=== PATIENT | male | born 1970 | race Caucasian/White ===

== ENCOUNTER → 2023-03-16 14:35 | Outpatient (CLI) | payer MEDICAID, SELFPAY ==
--- NOTE | 2023-03-16 14:39 | CT_ITS ---
FINAL REPORT CLINICAL HISTORY: TOBACCO USE, smokes 1 pk per day x 30 yrs FINDINGS: CTDI vol (mGy): 2.90 DLP: 121.[address] images of the chest were obtained using the low-dose protocol for screening. There is no evidence of mediastinal or hilar mass or adenopathy. No axillary mass or adenopathy is identified. On the lung window images, there are mild changes of centrilobular emphysema. A 4 mm nodule is seen in the periphery of the left lower lobe on image 48 of series 4. IMPRESSION: Lung RADS category 2. Recommend 12 month followup low-dose CT for further evaluation. Reviewed, Interpreted and Dictated by Rishabh Marks MD Transcribed by Kena Valdez Authenticated and [facility]
--- NOTE | 2023-03-16 14:47 | XR_ITS ---
FINAL REPORT CLINICAL HISTORY: RIGHT KNEE PAIN, NKT. Pain radiates down leg x yrs, worsened x last few mos. FINDINGS: There is no acute fracture or dislocation of the right knee. The joint spaces are intact. There is no soft tissue abnormality. IMPRESSION: No acute fracture Reviewed, Interpreted and Dictated by iRshabh Marks MD Transcribed by Ember Abdalla Authenticated and . [facility]
== END ==
PROVIDERS: PCP Physician Assistant; Visit Provider Physician Assistant
DX: Z87.891 Personal history of nicotine dependence (principal); Z12.2 Encounter for screening for malignant neoplasm of respiratory organs; M25.561 Pain in right knee
CPT/HCPCS: 71271; 73562

== ENCOUNTER 2023-04-09 10:52 | Outpatient (RCR) | payer MEDICAID, SELFPAY | END 2023-04-09 10:55 | disposition home or self-care (01) | LOC: PT 10:52 | PROVIDERS: PCP Physician Assistant; Visit Provider Physician Assistant | DX: M54.50 Low back pain, unspecified (principal); M25.561 Pain in right knee | CPT/HCPCS: 97163 ==

== ENCOUNTER → 2023-04-09 11:30 | Outpatient (CLI) | payer MEDICAID, SELFPAY ==
--- NOTE | 2023-04-09 11:41 | XR_ITS ---
FINAL REPORT CLINICAL HISTORY: LOW BACK PAIN COMPARISON: None FINDINGS: SINGLE VIEW PELVIS: A single view of the pelvis was obtained. There is no acute fracture or dislocation. Vizualized joint spaces are normally aligned. Soft tissues are unremarkable. IMPRESSION: No acute bony abnormality. Reviewed, Interpreted and Dictated by Mic Laguna III, MD Transcribed by Sarah Nance Authenticated and [facility]
--- NOTE | 2023-04-09 11:42 | XR_ITS ---
FINAL REPORT CLINICAL HISTORY: LOW BACK PAIN COMPARISON: None FINDINGS: 5 views of the lumbar spine were obtained. There is no evidence of fracture or dislocation. The vertebral alignment is normal. There is degenerative change with osteophytes. No paraspinous soft tissue abnormalities identified. IMPRESSION: No acute bony abnormality. Reviewed, Interpreted and Dictated by Mic Laguna III, MD Transcribed by Sarah Nance Authenticated and [facility]
== END ==
PROVIDERS: PCP Internal Medicine Adolescent Medicine; Visit Provider Physician Assistant
DX: M54.50 Low back pain, unspecified (principal)
CPT/HCPCS: 72110; 72170

== ENCOUNTER 2023-10-13 21:42 | Emergency (ER) | payer MEDICAID, SELFPAY ==
[2023-10-13 21:43] VITALS: BP 132/94; PULSE 86; RESP 18; TEMP 36.7; O2SAT 97; BMI 21.2
--- NOTE | 2023-10-13 22:16 | XR_ITS ---
PROCEDURE INFORMATION: Exam: XR Chest Exam date and time: 10/13/2023 10:14 PM Age: 52 years old Clinical indication: Cough; Additional info: Pulmonary nodule, cough, copd TECHNIQUE: Imaging protocol: Radiologic exam of the chest. Views: 2 views. COMPARISON: CT LUNG SCREENING 03/16/2023 2:41 PM FINDINGS: Lungs: Unremarkable. No consolidation. Pleural spaces: Unremarkable. No pleural effusion. No pneumothorax. Heart/Mediastinum: Unremarkable. No cardiomegaly. Bones/joints: Unremarkable. IMPRESSION: No acute pulmonary findings.
--- NOTE | 2023-10-13 22:22 | ECG_ITS ---
APPROVED REPORT Exam: Resting ECG HR:78 bpm ECG Measurements Heart Rate 78 AXES FL 193 P 63 QRSd 110 QRS 79 QT 372 T 63 QTc 405 Conclusion SINUS RHYTHM WITH OCCASIONAL SUPRAVENTRICULAR PREMATURE COMPLEXES POSSIBLE RIGHT VENTRICULAR CONDUCTION DELAY [RSR (QR) IN V1/V2] BORDERLINE ECG UNCONFIRMED REPORT Electronically signed by : Matty Saab MD 10/14/2023 08:36:13
--- NOTE | 2023-10-13 22:27 | HMH.EDGENADL ---
Discharge Plan Disposition Patient Disposition: Home, Self-Care Referrals Follow up/Referrals: Matty Saab MD [Primary Care Provider] - See instructions Activity Restrictions/Add. Instructions Additional Instructions/Restrictions: Call your family doctor to establish care for this visit to the emergency department and schedule follow-up within 48 hours to ensure improvement. If you have any worsening of your condition or any other concerning signs or symptoms, return to the emergency department or your primary care doctor for further evaluation. Clinical Impressions Clinical Impression: Lightheadedness Discharge ED Provider: Dinesh Hill General Adult HPI General Chief complaint: Recheck/Abnormal Lab/Rx Stated complaint: dizzy, feels cold Time Seen by Provider: 10/13/23 21:44 Mode of Arrival: Ambulatory Source of Information: Patient Limitations: No Limitations Description of Symptoms (Recalled from ER Triage Doc. by RN): Patient reports that he ate some dougnuts at 8:30 pm and began feeling cold on the inside with intermittent episodes of becoming unfocused . Patient also describes a cold sweat feeling. Patient denies nausea, vomiting, cough, pain. No other complaints at this time. History of Present Illness HPI narrative: 52-year-old male with history of anxiety and extensive smoking history and known lung nodule presenting with multiple complaints. Patient states that he ate donuts and then felt cold on the inside, as well as cold around his forehead. He also felt a little lightheaded and as if he could not focus. Has never had this before. Patient does have a history of anxiety and thinks it may be related to this, wanted to come to the emergency department to make sure nothing was wrong. Denies fevers, chills, cough, nausea or vomiting, diarrhea, chest pain, shortness of breath, neurologic deficits, or any other concerns. Related Data Allergies Allergy/AdvReac Type Severity Reaction Status Date / Time No Known Allergies Allergy Verified 04/13/23 09:38 [facility] Disclaimer: The information contained in this section may have been updated after the patient was seen, as this information can be updated by other users. Social History Smoking Status: Current every day smoker alcohol intake: never current occupational status: unemployed Travel in the last 8 weeks: None ROS Obtained: Yes All systems reviewed & no additional complaints except as documented Physical Exam General General appearance: alert and in no apparent distress Head Head exam: atraumatic and normocephalic Eye Eye exam: Present normal appearance, PERRL and EOMI ENT ENT exam: Present mucous membranes moist Neck Neck exam: Present normal inspection, full ROM and trachea midline Respiratory Respiratory exam: Absent respiratory distress, wheezes, stridor, accessory muscle use or prolonged expiratory phase Cardiovascular Cardiovascular exam: Present normal rhythm Abdominal Exam Abdominal exam: Present soft; Absent distention, tenderness, guarding, rebound or rigidity Extremities Exam Extremities exam: Absent edema Neurological Exam Neurological exam: Present alert, oriented X3, CN II-XII intact and normal gait; Absent motor sensory deficit Skin Skin exam: Present warm and dry; Absent diaphoresis or erythema Medical Decision Making Medical Records Medical records reviewed: Yes I reviewed the patient's medical records. Celestino Inquiry Pt receiving controlled substance: No Celestino was queried for this patient: No Vital Signs: 10/13/23 21:43 10/13/23 22:30 Temperature 98.0 F Temperature Source Oral Pulse Rate 74 Pulse Rate [Left Radial] 86 Respiratory Rate 18 18 Blood Pressure 130/90 Blood Pressure [Right Arm] 132/94 H Blood Pressure Mean 98 Blood Pressure Mean [Right Arm] 106 Blood Pressure Source [Right Arm] Automatic Cuff Blood Pressure Position [Right Arm] Sitting 02 Sat by Pulse Oximetry 97 97 Oxygen Delivery Method Room Air Room Air Orders (Tests/Meds): ORDERS Category Date Time Status CXR 2 view (NOT portable) [XR chest 2V] Stat Exams 10/13/23 22:16 Completed Medical Decision Narrative: 52-year-old male with history of anxiety and extensive smoking history and known lung nodule presenting with multiple complaints. Patient states that he ate donuts and then felt cold on the inside, as well as cold around his forehead. He also felt a little lightheaded and as if he could not focus. Has never had this before. Patient does have a history of anxiety and thinks it may be related to this, wanted to come to the emergency department to make sure nothing was wrong. Denies fevers, chills, cough, nausea or vomiting, diarrhea, chest pain, shortness of breath, neurologic deficits, or any other concerns. History was obtained via conversation with patient and family. On arrival, patient hemodynamically stable, alert, oriented x4, appropriate, GCS 15, moving all extremities spontaneously, pupils equal and reactive to light. Full physical exam performed and significant for very well-appearing male no acute distress. Lungs clear to auscultation bilaterally. Neurovascular intact. Anxious, speaking quickly. No lower extremity edema, cardiopulmonary exam within normal limits. Differential includes anxiety, COPD, bronchitis, arrhythmia, ACS, [place], among others. Workup independently interpreted and significant for normal chest x-ray. See radiology read for full review of final results. Independent interpretation of EKG shows sinus rhythm 78 beats a minute without ST or T wave changes concerning for acute ischemia. No OK, QRS, or QT prolongation. [place] normal. Given patient presentation, workup, history, this most likely represents anxiety. Because patient at baseline without signs or symptoms of clinical decompensation, deemed appropriate for discharge. Results were relayed to patient who voiced understanding and were agreeable to outpatient management and follow up. At the time of discharge the patient was hemodynamically stable, tolerating PO, and mobilizing appropriately. Critical Care Critical Care Time Critical Care Time: No
[2023-10-13 22:30] VITALS: BP 130/90; PULSE 74; RESP 18; O2SAT 97
[2023-10-13 23:04] VITALS: BP 130/90; PULSE 66; RESP 17; TEMP 36.8; O2SAT 98
== END 2023-10-13 23:06 | disposition home or self-care (01) ==
PROVIDERS: Emergency Provider Emergency Medicine; PCP Internal Medicine Adolescent Medicine
DX: R42 Dizziness and giddiness (principal); F17.210 Nicotine dependence, cigarettes, uncomplicated; F41.9 Anxiety disorder, unspecified
CPT/HCPCS: 71046; 93005; 99283

== ENCOUNTER → 2023-11-11 13:58 | Outpatient (POV) | payer MEDICAID, SELFPAY ==
[2023-11-11 14:04] VITALS: BP 140/95; PULSE 94; RESP 18; O2SAT 95; BMI 21.5
--- NOTE | 2023-11-11 14:22 | A.OFFVIS_ITS ---
HPI Data of Consult Patient: new to practice Consult date: 11/11/23 Requesting Physician: Claire Harris APRN Consult Narrative Reason for consult: Low back pain, bilateral hip pain History of present illness: Mr. Cosme is a 52 year old male who presents today as a new patient. He is a referral from Haim Harris's office. Patient provide rates his pain a 6 out of 10. Patient states his pain is only radiating symptoms to his hips. Patient states has been going on for approximately 3 years related to an injury when he picks something up and tolerating Tylenol. Patient does describe his pain as an aching, throbbing sensation that is worse with increased activity or ambulation. Patient did go to Dr. Harris's office for evaluation and he was not recommending any surgery but did discuss that it may be beneficial for lumbar medial branch blocks and RFA. Patient did have imaging done that did show facet arthritis. Patient does state today that the pain interferes with his ability perform activities of daily living such as cooking and cleaning however he is not interested in injection therapy due to having a family member who in the past had a bad reaction. Patient has tried [id number] Tylenol and ibuprofen along with heat and ice and topicals along with muscle relaxers with minimal relief. Patient denies any physical therapy or chiropractor therapy. He does state that he does regular exercise and stretching on a daily basis with minimal improvement. Patient is not on any scheduled medications. Patient does state he has a history of mitral valve prolapse and so he tries to avoid any unnecessary oral medication. His Celestino has been reviewed and is appropriate. CC: Claire Harris APRN [facility] Disclaimer: The information contained in this section may have been updated after the patient was seen, as this information can be updated by other users. Medical History (Updated 11/11/23 @ 14:28 by Claire Harris APRN) Arthritis Irregular heartbeat Surgical History (Updated 11/11/23 @ 14:06 by Jeri Sanchez RN) Surgical history unknown Family History (Updated 11/11/23 @ 14:06 by Jeri Sanchez RN) Other Cancer Diabetes Heart disease Social History (Updated 10/13/23 @ 22:57 by Dinesh Hill MD) Smoking Status: Current every day smoker alcohol intake: never current occupational status: unemployed Travel in the last 8 weeks: None Review of Systems Review of Systems Review of systems:: pertinent systems reviewed and negative unless documented below Review of systems (narrative): Review of Systems: General: No recent weight changes, no fever, no sleep disturbances Respiratory: No cough, no shortness of air, no recurring pulmonary infections Cardiovascular/peripheral vascular: No chest pain, no palpitations, no edema, no shortness of breath Gastrointestinal: No new onset incontinence, normal bowel movements reported Genitourinary: No new onset incontinence Musculoskeletal: Low back pain, bilateral hip pain Psychiatric: [Normal mood/affect] Neurological: [Denies weakness in extremities], [denies balance issues] Meds Home Medications and Allergies Home Medications Medication Instructions Recorded Confirmed Type cyclobenzaprine 10 mg tablet 10 mg PO DAILY Pain 11/11/23 11/11/23 History New Prescriptions to Start Prescriptions: Allergies Allergy/AdvReac Type Severity Reaction Status Date / Time Penicillins Allergy Verified 11/11/23 14:09 Objective Narrative: Physical Exam: General: Alert and oriented x3, no acute distress, pleasant and cooperative Lungs: Respirations even and unlabored, symmetrical chest expansion Eyes: PERRL Musculoskeletal: Flexion and extension of lumbar [spine] somewhat guarded secondary to pain, [antalgic gait note positive Kemps test d] Neurological: Speech clear, no gross sensory deficit Additional findings Additional findings: MRI without contrast [facility] Findings: Multiplanar MR imaging of the lumbar spine was performed without contrast. On the sagittal T2 weighted images disc degeneration is seen throughout. Mild endplate degenerative changes are seen at multiple levels. The vertebral alignment is normal. No evidence of fracture. Several vertebral body hemangiomas are identified. The conus has an unremarkable appearance. No significant canal stenosis identified. L1-2: Annular bulge is present with osteophytes and facet osteoarthropathy. No canal stenosis or neuroforaminal narrowing. L2-3: Annular bulge is present with osteophytes and facet osteoarthr opathy. No significant stenosis or narrowing. L3-4: Annular bulge is present with no central canal stenosis or neuroforaminal narrowing. L4-5: Annular bulge is present with osteophytes and facet osteoarthropathy. There is moderate right and mild left neuroforaminal narrowing. L5-S1: Annular bulge is present with osteophytes and facet osteoarthropathy. Small central disc protrusion with contacts the S1 nerve root bilaterally. There is severe right and moderate left neuroforaminal narrowing. There is a 11 mm focus of decreased T2 signal in the upper pole of the left kidney that is only partially imaged on this exam. Assessment and Plan *Assessment and plan (1) Degenerative disc disease, lumbar: Status: Acute Category: Medical Code(s): M51.36 - Other intervertebral disc degeneration, lumbar region (2) Bilateral hip pain: Status: Acute Category: Medical Code(s): M25.551 - Pain in right hip; M25.552 - Pain in left hip (3) Lumbar facet arthropathy: Status: Acute Category: Medical Code(s): M47.816 - Spondylosis without myelopathy or radiculopathy, lumbar region (4) Lumbar spondylosis: Status: Acute Category: Medical Code(s): M47.816 - Spondylosis without myelopathy or radiculopathy, lumbar region Plan Patient is experiencing significant pain in his low back and hips with limited range of motion and a positive Kemps test. I have discussed with the patient that he may benefit from a lumbar medial branch block bilaterally. Risk and benefits were discussed with the patient however at this time he would like to wait. I will order the patient a compounded cream. I have also discussed with the patient that he may benefit from Tylenol arthritis. Patient will return to clinic in 2 weeks for reevaluation of symptoms and plan of care. Patient has been instructed to contact the clinic with any concerns before the next appointment. Dr. Soni has reviewed this note and agrees with this plan of care. This note was dictated using voice recognition software and make contain errors or omissions.
== END ==
LOC: SC.PAIN 13:59
PROVIDERS: Visit Provider Nurse Practitioner Family
DX: M51.36 Other intervertebral disc degeneration, lumbar region (principal); M25.551 Pain in right hip; M25.552 Pain in left hip; M47.816 Spondylosis without myelopathy or radiculopathy, lumbar region
CPT/HCPCS: 99202; G0463

== ENCOUNTER → 2023-11-26 14:28 | Outpatient (POV) | payer MEDICAID, SELFPAY ==
[2023-11-26 14:41] VITALS: BMI 21.4
--- NOTE | 2023-11-26 14:55 | EXP.PAIN.SOA ---
[facility] Pain Management SOAP Note Subjective:: Patient is a pleasant 53-year-old male who presents today for 2-week follow-up. We are currently treating the patient for degenerative disc disease of lumbar spine with lumbar facet arthropathy and lumbar spondylosis. Today he rates his pain an 8 out of 10. Patient denies any new trauma or injury. From our last visit he was ordered compounded cream and he states that this did significantly help with his knees, shoulders and elbows however he did not notice significant improvement in his back. Patient does state that he continues to have significant pain in his low back that is worse with certain movements such as bending, twisting or lifting. He does state the pain interferes with his ability to perform activities of daily living such as cooking and cleaning. Patient has been to a orthospine doctor who was not recommending surgery. Patient states that his back continues to have worsened over the last 3 years and he cannot work due to this. Patient does have a history of heart related issues. His Celestino has been reviewed and is appropriate. Review of Systems: General: No recent weight changes, no fever, no sleep disturbances Respiratory: No cough, no shortness of air, no recurring pulmonary infections Cardiovascular/peripheral vascular: No chest pain, no palpitations, no edema, no shortness of breath Gastrointestinal: No new onset incontinence, normal bowel movements reported Genitourinary: No new onset incontinence Musculoskeletal: Low back pain Psychiatric: [Normal mood/affect] Neurological: [Denies weakness in extremities], [denies balance issues] Objective:: Physical Exam: General: Alert and oriented x3, no acute distress, pleasant and cooperative Lungs: Respirations even and unlabored, symmetrical chest expansion Eyes: PERRL Musculoskeletal: Flexion and extension of lumbar [spine] somewhat guarded secondary to pain, [antalgic gait noted] positive Kemps test Neurological: Speech clear, no gross sensory deficit Assessment:: Degenerative disc disease of lumbar spine with lumbar facet arthropathy and lumbar spondylosis Plan:: Patient continues to experience significant pain in his low back with limited range of motion and a positive Kemps test. I have reviewed over with the patient that I do still believe he would be a beneficial candidate of a lumbar medial branch block. Risk and benefits were discussed with the patient however he is not interested in this option at this time. I have counseled the patient if he ends up changing his mind between now and his next visit he can call and schedule this injection over the phone. This injection would be a lumbar medial branch block bilaterally L4-L5 and L5-S1. Patient will return to clinic in 2 months for reevaluation of symptoms and plan of care. Patient has been instructed to contact the clinic with any concerns before the next appointment. Dr. oSni has reviewed this note and agrees with this plan of care. This note was dictated using voice recognition software and make contain errors or omissions. [facility] Disclaimer: The information contained in this section may have been updated after the patient was seen, as this information can be updated by other users. Medical History (Updated 11/11/23 @ 14:28 by Claire Harris APRN) Arthritis Irregular heartbeat Surgical History (Updated 11/11/23 @ 14:06 by Jeri Sanchez RN) Surgical history unknown Family History (Updated 11/11/23 @ 14:06 by Jeri Sanchez RN) Other Cancer Diabetes Heart disease Social History (Updated 11/11/23 @ 14:31 by Jeri Sanchez RN) Smoking Status: Current every day smoker alcohol intake: never current occupational status: other Travel in the last 8 weeks: None
== END ==
LOC: SC.PAIN 14:29
PROVIDERS: Visit Provider Nurse Practitioner Family
DX: M51.36 Other intervertebral disc degeneration, lumbar region (principal); M47.816 Spondylosis without myelopathy or radiculopathy, lumbar region
CPT/HCPCS: 99212; G0463